=== PATIENT | female | born 1990 | race African-American/Black ===

== ENCOUNTER 2019-04-27 19:34 | Emergency (ER) | payer BC ==
[~2019-04-27] VITALS: Ht 167.6 cm; Wt 110.0 kg
[~2019-04-27 19:34] MED LIST: BACTRIM DS1 TAB OR
[2019-04-27] MEDS ORDERED: METFORMIN500 MG PO (20:08)
[2019-04-27 20:29] LABS: HEMATOCRIT 37.9 % (37.0-47.0); HEMOGLOBIN 11.9 g/dl (12.0-16.0); IMMATURE GRANULOCYTES 0.2 % (0.0-5.0); MEAN CELL VOLUME 89.6 fL CALC (80.0-100.0); MEAN CORPUSCULAR HGB 28.1 pG CALC (26.0-32.0); MEAN CORPUSCULAR HGB CONC 31.4 g/L CALC (32.0-36.0); NEUT# 5.49 thou/uL (2.00-7.15); RED BLOOD COUNT 4.23 mill/uL (4.20-5.60); RED CELL DISTRI WIDTH 15.9 % (11.5-15.5)
[2019-04-27 20:49] LABS: ALBUMIN 4.6 g/dL (3.2-5.0); ALKALINE PHOSPHATASE 94 u/l (38-126); ANION GAP 15 (6-22 (CALC)); BILIRUBIN, TOTAL 0.5 mg/dL (0.0-1.4); BUN 9 mg/dL (7-17); BUN/CREATININE RATIO 13 (12-20 (CALC)); CARBON DIOXIDE 23 mmol/l (22-30); CHLORIDE 104 mmol/l (95-108); CREATININE 0.7 mg/dL (0.5-1.0); GFR > 60 ML/MIN (>=60 (CALC)); GFR FOR AFR.AMER. > 60 ML/MIN (>=60 (CALC)); POTASSIUM 3.9 mmol/l (3.5-5.1); SGOT/AST 28 u/l (14-36); SODIUM 138 mmol/l (137-146); TOTAL PROTEIN 8.8 g/dL (6.3-8.2)
[2019-04-27 20:51] LABS: ACT PARTIAL THROMBO TIME 26.8 SECONDS (20.0-32.5); D-DIMER 0.2 mg/L (0.19-0.60); PROTHROMBIN TIME 10.8 SECONDS (9.0-12.5)
[2019-04-27] MEDS ORDERED: TORADOL PO (22:11)
[2019-04-27 23:05] VITALS: BP 126/68
== END 2019-04-27 23:06 | disposition home or self-care (01) | DRG 313 ==
LOC: ED 19:34
PROVIDERS: Family Medicine
DX: R07.89 Other chest pain (principal); V49.49XA Driver injured in collision with other motor vehicles in traffic accident, initial encounter

== ENCOUNTER 2019-05-11 19:26 | Emergency (ER) | payer OTHER, BC ==
[~2019-05-11] VITALS: Ht 167.6 cm; Wt 132.0 kg
[~2019-05-11 19:26] MED LIST changes: +METFORMIN500 MG PO; +TORADOL PO
[2019-05-11] MEDS ORDERED: FLEXERIL5 MG PO (21:47)
[2019-05-11] MEDS ORDERED: VOLTAREN - GENE75 MG PO (21:47)
[2019-05-11 22:15] VITALS: BP 153/81
== END 2019-05-11 22:15 | disposition home or self-care (01) | DRG 552 ==
LOC: ED 19:26
DX: S16.1XXA Strain of muscle, fascia and tendon at neck level, initial encounter (principal); S39.012A Strain of muscle, fascia and tendon of lower back, initial encounter; V89.2XXA Person injured in unspecified motor-vehicle accident, traffic, initial encounter